=== PATIENT | male | born 1950 | race African-American/Black ===

== ENCOUNTER 2017-05-17 15:27 | Inpatient (IN) | payer MEDICARE ==
[2017-05-17 16:46] LABS: Basophils % (Auto) 0.9 % (0.0-1.8); Eosinophils % (Auto) 0.8 % (0.0-4.3); Lymphocytes # (Auto) 0.8 K/mm3 (1.2-5.4); Lymphocytes % (Auto) 17.7 % (13.4-35.0); Mean Corpuscular HGB Conc 31 % (32-34); Mean Corpuscular Hemoglobin 28 pg (28-32); Mean Corpuscular Volume 90 fl (84-94); Monocytes # (Auto) 0.7 K/mm3 (0.0-0.8); Monocytes % (Auto) 14.6 % (0.0-7.3); Platelet Count 112 K/mm3 (140-440); Red Blood Count 5.53 M/mm3 (3.65-5.03); Red Cell Distribution Width 18.6 % (13.2-15.2)
[2017-05-17 16:48] LABS: Calcium 9.6 mg/dL (8.4-10.2)
[2017-05-17 16:59] LABS: Hematocrit 49.7 % (35.5-45.6); Hemoglobin 15.5 gm/dl (11.8-15.2)
--- NOTE | 2017-05-17 18:27 | XRay Report ---
FINAL REPORT EXAM: XR CHEST ROUTINE 2V HISTORY: Shortness of breath TECHNIQUE: Chest single AP PRIORS: None. FINDINGS: There is a large right pleural effusion with opacification of approximately 50 percent of the right mina thorax. Nodular confluent opacity in the right lower lobe is indeterminate could reflect mass or infiltrate. Right heart border is obscured. Left lung is unremarkable no evidence for left effusion IMPRESSION: Large right pleural effusion
--- NOTE | 2017-05-18 02:15 | Emergency Department Report ---
ED General Adult HPI - General Chief complaint: Dyspnea/Respdistress Stated complaint: WATER IN LUGS Time Seen by Provider: 05/18/17 01:59 Source: patient, family, RN notes reviewed Mode of arrival: Ambulatory Limitations: No Limitations - History of Present Illness Initial comments: This is a 66-year-old male who was previously unknown to this provider. Patient visiting from [place] and has a past medical history of hypertension , end-stage renal disease on dialysis. Presents to the ER complaining of shortness of breath, indicating that he thinks he has water on his right lung. This is constant for the past few days to week. Symptoms worse with physical exertion. In a decrease with rest. Patient denies leg pain, leg swelling, hemoptysis. Patient also endorses resolved right-sided chest pain. The pain did not radiate to the back, arms or neck. There is no vomiting or diaphoresis. -: Gradual Location: chest Radiation: non-radiation Severity scale (0 -10): 0 Consistency: other (as per history of present illness) Improves with: other (chest pain does not have exacerbating or relieving factors. Shortness of breath worsens with physical exertion and decreases with rest.) Worsens with: other (as per history of present illness) Associated Symptoms: chest pain, shortness of breath, weakness - Related Data Allergies Allergy/AdvReac Type Severity Reaction Status Date / Time No Known Allergies Allergy Unverified 05/17/17 15:43 ED Review of Systems ROS: Stated complaint: WATER IN LUGS Other details as noted in HPI ED Past Medical Hx - Past Medical History Previous Medical History?: Yes Hx Hypertension: Yes Hx Renal Disease: Yes - Surgical History Past Surgical History?: Yes Additional Surgical History: Left arm dialysis graft - Social History Smoking Status: Former Smoker Substance Use Type: Prescribed ED Physical Exam - General Limitations: No Limitations General appearance: alert, in no apparent distress - Head Head exam: Present: atraumatic, normocephalic - Eye Eye exam: Present: normal appearance, EOMI. Absent: nystagmus - ENT ENT exam: Present: normal exam, normal orophraynx, mucous membranes moist, normal external ear exam - Neck Neck exam: Present: normal inspection - Respiratory Respiratory exam: Present: decreased breath sounds (decreased breath sounds in the right hemithorax). Absent: respiratory distress, rales, rhonchi, stridor - Cardiovascular Cardiovascular Exam: Present: regular rate, normal rhythm, normal heart sounds. Absent: systolic murmur, diastolic murmur, rubs, gallop - GI/Abdominal GI/Abdominal exam: Present: soft, normal bowel sounds. Absent: distended, tenderness, guarding, rebound, rigid, pulsatile mass - Rectal Rectal exam: Present: deferred - Extremities Exam Extremities exam: Present: normal inspection, full ROM, normal capillary refill , other (after extremity AV fistula, appropriate thrill, no redness, pus or streaking). Absent: pedal edema, joint swelling, calf tenderness - Back Exam Back exam: Present: normal inspection, full ROM. Absent: tenderness, CVA tenderness (R), paraspinal tenderness, vertebral tenderness - Neurological Exam Neurological exam: Present: alert, CN II-XII intact, other (Extraocular movements intact. Tongue midline. No facial droop. Facial sensation intact to light touch in the V1, V2, V3 distribution bilaterally. 5 and 5 strength in 4 extremities.. Sensation is intact to light touch in 4 extremities.). Absent : motor sensory deficit - Psychiatric Psychiatric exam: Present: normal affect, normal mood - Skin Skin exam: Present: warm, dry, intact, normal color. Absent: rash ED Course Vital Signs 05/17/17 05/18/17 05/18/17 15:43 01:07 02:00 Temperature 98.4 F 98.1 F 97.7 F Pulse Rate 89 89 104 H Respiratory 18 18 18 Rate Blood Pressure 94/64 106/67 Blood Pressure 108/64 [Left] O2 Sat by Pulse 94 96 Oximetry ED Medical Decision Making - Lab Data Result diagrams: 05/17/17 16:11 05/17/17 16:11 Vital Signs 05/17/17 05/18/17 05/18/17 15:43 01:07 02:00 Temperature 98.4 F 98.1 F 97.7 F Pulse Rate 89 89 104 H Respiratory 18 18 18 Rate Blood Pressure 94/64 106/67 Blood Pressure 108/64 [Left] O2 Sat by Pulse 94 96 Oximetry Lab Results 05/17/17 05/17/17 05/18/17 Range/Units 16:11 16:11 02:00 WBC 4.7 (4.5-11.0) K/mm3 RBC 5.53 H (3.65-5.03) M/mm3 Hgb 15.5 H (11.8-15.2) gm/dl Hct 49.7 H (35.5-45.6) % MCV 90 (84-94) fl MCH 28 (28-32) pg MCHC 31 L (32-34) % RDW 18.6 H (13.2-15.2) % Plt Count 112 L (140-440) K/mm3 Lymph % (Auto) 17.7 (13.4-35.0) % [place] % (Auto) 14.6 H (0.0-7.3) % Eos % (Auto) 0.8 (0.0-4.3) % Baso % (Auto) 0.9 (0.0-1.8) % Lymph # 0.8 L (1.2-5.4) K/mm3 [place] # 0.7 (0.0-0.8) K/mm3 Eos # 0.0 (0.0-0.4) K/mm3 Baso # 0.0 (0.0-0.1) K/mm3 Seg Neutrophils % 66.0 (40.0-70.0) % Seg Neutrophils # 3.1 (1.8-7.7) K/mm3 Sodium 144 (137-145) mmol/L Potassium 4.3 (3.6-5.0) mmol/L Chloride 93.2 L (98-107) mmol/L Carbon Dioxide 34 H (22-30) mmol/L Anion Gap 21 mmol/L BUN 29 H (9-20) mg/dL Creatinine 5.7 H (0.8-1.5) mg/dL Estimated GFR 10 ml/min BUN/Creatinine Ratio 5 % Glucose 71 L (75-100) mg/dL Calcium 9.6 (8.4-10.2) mg/dL Troponin T 0.182 H* (0.00-0.029) ng/mL NT-Pro-B Natriuret Pep 27734 H (0-900) pg/mL - EKG Data When compared to previous EKG there are: previous EKG unavailable 05/18/17 03:01 Sinus, 87 bpm, left axis deviation, left anterior fascicular block, QTC prolonged, high left ventricular voltage, abnormal EKG, poor R-wave progression , not morphologically consistent with ST elevation myocardial infarction - Radiology Data Radiology results: report reviewed, image reviewed X-ray of the chest demonstrates large right-sided pleural effusion, occupies 50 % the right hemithorax, may represent infiltrate as well, - Medical Decision Making Differential diagnosis, including but not limited to: Pneumonia, congestive heart failure, pleural effusion, pleuritis, pericarditis, myocarditis, acute coronary syndrome Assessment and plan: 66-year-old male, visiting from [place], with a complaint of chest pain which has resolved and shortness of breath. EKG abnormal, troponin elevated, this is most likely secondary to renal insufficiency, x-ray shows large right-sided pleural effusion, this is most likely the reason for the patient's chest pain or shortness of breath. Clinically doubt pneumonia given fever, case discussed with nephrology on-call, Dr. Tamara Solis, she agrees to follow in consultation, patient will be admitted for symptomatic pleural effusion, and further evaluation of chest pain. Critical care attestation.: If time is entered above; I have spent that time in minutes in the direct care of this critically ill patient, excluding procedure time. ED Disposition Clinical Impression: ESRD (end stage renal disease), Pleural effusion, Elevated troponin Disposition: 09 OP ADMIT IP TO THIS HOSP Is pt being admited?: Yes Does the pt Need Aspirin: Yes Condition: Good Referrals: JUMANA LUNA MD [Primary Care Provider] - 3-5 Days
[2017-05-18] MEDS ORDERED: BABY ASPIRIN PO ONE (03:03)
[2017-05-18 03:05] LABS: INR 1.18 (0.87-1.13)
[2017-05-18 03:27] LABS: Chol/HDL Ratio 3.1 %
--- NOTE | 2017-05-18 05:00 | History and Physical Report ---
History of Present Illness Date of examination: 05/18/17 Chief complaint: Shortness of breath, R side chest pain History of present illness: This is a 66-year-old male who was previously unknown to this provider. Patient visiting from [place] and has a past medical history of hypertension , end-stage renal disease on dialysis. Presents to the ER complaining of shortness of breath, indicating that he thinks he has water on his right lung. This is constant for the past few days to week. Symptoms worse with physical exertion. In a decrease with rest. Patient denies leg pain, leg swelling, hemoptysis. Patient also endorses resolved right-sided chest pain. The pain did not radiate to the back, arms or neck. There is no vomiting or diaphoresis. He has h/o pleural effusion and thoracentesis multiple times in the past , last one 2 yrs ago Past History Past Medical History: ESRD Medications and Allergies Allergies Allergy/AdvReac Type Severity Reaction Status Date / Time No Known Allergies Allergy Unverified 05/17/17 15:43 Review of Systems All systems: negative Exam - Physical Exam Narrative exam: General: the patient is awake alert oriented to time place and person. no evidence of acute distress HEENT: Head is atraumatic normocephalic,. Pupils equal round reactive to light and accommodation, extraocular movements intact. Oral mucosa moist. Oropharynx clear. No pharyngeal erythema or tonsillar exudate. Neck: Supple no JVD no thyromegaly or lymphadenopathy. Heart: Regular rate and rhythm no murmurs or gallops. S1 and S2 normal. PMI not displaced. Lungs: Clear to auscultation left side and diminished breath sounds right side . No rales rhonchi wheezing. Nonlabored breathing. Normal chest wall expansion. Abdomen: Soft, nondistended, and nontender. Normoactive bowel sounds. No hepatosplenomegaly. No abdominal masses or bruit appreciated. Extremities: No cyanosis/clubbing/ edema. Musculoskeletal: Normal range of movement all joints. No obvious deformity or tenderness to palpation. Normal muscle tone. Back: Normal alignment. No step-off. No midline or paraspinal tenderness. No CVA tenderness. Neurological: Grossly intact and nonfocal. No cerebellar signs. Cranial nerves II-12 grossly intact. Strength 5 out of 5 all 4 extremities. Sensations grossly intact. Skin: Warm and dry no rashes or bruises. Left forearm fistula. Good bruit and thrill Psychiatric: Normal mood. Appropriate affect and good insight and judgment. Vascular system: No lymphadenopathy. Distal pulses 2+ bilaterally. - Constitutional Vitals: Temp Pulse Resp BP Pulse Ox 97.7 F 100 H 18 95/70 95 05/18/17 02:00 05/18/17 03:19 05/18/17 03:19 05/18/17 03:19 05/18/17 03:19 Results - Labs CBC & Chem 7: 05/17/17 16:11 05/17/17 16:11 Labs: Laboratory Last Values WBC 4.7 K/mm3 (4.5-11.0) 05/17/17 16:11 RBC 5.53 M/mm3 (3.65-5.03) H 05/17/17 16:11 Hgb 15.5 gm/dl (11.8-15.2) H 05/17/17 16:11 Hct 49.7 % (35.5-45.6) H 05/17/17 16:11 MCV 90 fl (84-94) 05/17/17 16:11 MCH 28 pg (28-32) 05/17/17 16:11 MCHC 31 % (32-34) L 05/17/17 16:11 RDW 18.6 % (13.2-15.2) H 05/17/17 16:11 Plt Count 112 K/mm3 (140-440) L 05/17/17 16:11 Lymph % (Auto) 17.7 % (13.4-35.0) 05/17/17 16:11 [place] % (Auto) 14.6 % (0.0-7.3) H 05/17/17 16:11 Eos % (Auto) 0.8 % (0.0-4.3) 05/17/17 16:11 Baso % (Auto) 0.9 % (0.0-1.8) 05/17/17 16:11 Lymph # 0.8 K/mm3 (1.2-5.4) L 05/17/17 16:11 [place] # 0.7 K/mm3 (0.0-0.8) 05/17/17 16:11 Eos # 0.0 K/mm3 (0.0-0.4) 05/17/17 16:11 Baso # 0.0 K/mm3 (0.0-0.1) 05/17/17 16:11 Seg Neutrophils % 66.0 % (40.0-70.0) 05/17/17 16:11 Seg Neutrophils # 3.1 K/mm3 (1.8-7.7) 05/17/17 16:11 PT 15.6 Sec. (12.2-14.9) H 05/18/17 02:00 INR 1.18 (0.87-1.13) H 05/18/17 02:00 Sodium 144 mmol/L (137-145) 05/17/17 16:11 Potassium 4.3 mmol/L (3.6-5.0) 05/17/17 16:11 Chloride 93.2 mmol/L (98-107) L 05/17/17 16:11 Carbon Dioxide 34 mmol/L (22-30) H 05/17/17 16:11 Anion Gap 21 mmol/L 05/17/17 16:11 BUN 29 mg/dL (9-20) H 05/17/17 16:11 Creatinine 5.7 mg/dL (0.8-1.5) H 05/17/17 16:11 Estimated GFR 10 ml/min 05/17/17 16:11 BUN/Creatinine Ratio 5 % 05/17/17 16:11 Glucose 71 mg/dL (75-100) L 05/17/17 16:11 Calcium 9.6 mg/dL (8.4-10.2) 05/17/17 16:11 Troponin T 0.182 ng/mL (0.00-0.029) H* 05/18/17 02:00 NT-Pro-B Natriuret Pep 41835 pg/mL (0-900) H 05/18/17 02:00 Triglycerides 103 mg/dL (2-149) 05/18/17 02:00 Cholesterol 155 mg/dL (50-199) 05/18/17 02:00 LDL Cholesterol Direct 85 mg/dL (50-130) 05/18/17 02:00 HDL Cholesterol 50 mg/dL (40-59) 05/18/17 02:00 Cholesterol/HDL Ratio 3.10 % 05/18/17 02:00 - Imaging and Cardiology Imaging and Cardiology: EKG - Sinus rythm, 87 bpm, left axis deviation, left anterior fascicular block, QTC prolonged, high left ventricular voltage, abnormal EKG, poor R-wave progression, not morphologically consistent with ST elevation myocardial infarction X-ray of the chest demonstrates large right-sided pleural effusion, occupies 50 % the right hemithorax, may represent infiltrate as well, Assessment and Plan Assessment and plan: A&P - * Left pleural effusion * ESRD * Possible underlying LLL PNA * Chest pain - pleuritic * Hypotension Plan - Admit to medical floor with telemetry Nephrology consulted for dialysis, maintain patient's distal pulses scheduled Empiric antibiotics in the form of Levaquin Consult pulmonology in a.m. for possible thoracentesis Monitor CBC and electrolytes S when necessary as per protocol and degenerative prophylaxis as ordered monitor and follow the patient closely
[2017-05-18] MEDS ORDERED: AMBIEN PO PRN (05:06)
[2017-05-18] MEDS ORDERED: MILK OF MAGNESIA PO PRN (05:06)
[2017-05-18] MEDS ORDERED: PROVENTIL IH PRN (05:06)
[2017-05-18] MEDS ORDERED: ZOFRAN IV PRN (05:06)
[2017-05-18] MEDS ORDERED: PERCOCET 5/325 PO PRN (05:06)
[2017-05-18] MEDS ORDERED: TYLENOL PO PRN (05:06)
[2017-05-18] MEDS ORDERED: DULCOLAX PR PRN (05:06)
[2017-05-18] MEDS ORDERED: NACL 0.9% 1000 ML 1,000 ML IV SCH (06:00)
[2017-05-18] MEDS: DUONEB *Not for PRN Use IH SCH ×3 (07:22→20:41)
--- NOTE | 2017-05-18 09:20 | Consultation ---
History of Present Illness - Reason for Consult Consult date: 05/18/17 Past History Past Medical History: ESRD Medications and Allergies Allergies Allergy/AdvReac Type Severity Reaction Status Date / Time No Known Allergies Allergy Unverified 05/17/17 15:43 Active Meds: Active Medications Acetaminophen (Tylenol) 650 mg PO Q4H PRN PRN Reason: Pain MILD(1-3)/Fever >100.5/HUNTER Albuterol (Proventil) 2.5 mg IH Q3HRT PRN PRN Reason: Shortness Of Breath Albuterol/Ipratropium (Duoneb *Not For Prn Use*) 1 ampul IH Q6HRT [facility] Last Admin: 05/18/17 07:22 Dose: 1 ampul Bisacodyl (Dulcolax) 10 mg [place] QDAY PRN PRN Reason: Constipation unrelieved by MOM Docusate Sodium (Colace) 100 mg PO BID [facility] Enoxaparin Sodium (Lovenox) 30 mg SUB-Q QDAY [facility] Sodium Chloride (Nacl 0.9% 1000 Ml) 1,000 mls @ 75 mls/hr IV DIRECT [facility] Levofloxacin/Dextrose (Levaquin 500mg/100ml) 500 mg in 100 mls @ 100 mls/hr IV Q48HR [facility] Magnesium Hydroxide (Milk Of Magnesia) 30 ml PO Q4H PRN PRN Reason: Constipation Ondansetron HCl (Zofran) 4 mg IV Q8H PRN PRN Reason: N/V unrelieved by Reglan Oxycodone/Acetaminophen (Percocet 5/325) 1 tab PO Q6H PRN PRN Reason: Pain, Moderate (4-6) Pantoprazole Sodium (Protonix) 40 mg PO QDAY [facility] Senna (Senokot) 8.6 mg PO Q12HR [facility] Zolpidem Tartrate (Ambien) 5 mg PO QHS PRN PRN Reason: Insomnia Exam - Vital Signs Vital signs: Vital Signs Temp Pulse Resp BP Pulse Ox 98.4 F 89 18 94/64 94 05/17/17 15:43 05/17/17 15:43 05/17/17 15:43 05/17/17 15:43 05/17/17 15:43 Results - Lab Results 05/17/17 16:11 05/17/17 16:11 Most recent lab results Calcium 9.6 mg/dL (8.4-10.2) 05/17/17 16:11
[2017-05-18] MEDS: PROTONIX PO SCH (09:40)
[2017-05-18] MEDS: SENOKOT PO SCH ×2 (09:40→21:42)
[2017-05-18] MEDS: LOVENOX SUB-Q SCH (09:40)
[2017-05-18] MEDS: COLACE PO SCH ×2 (09:40→21:42)
[2017-05-18] MEDS ORDERED: LEVAQUIN 750MG/150ML 750 MG/150 ML BAG IV SCH (10:00)
[2017-05-18] MEDS: PHOSLO PO SCH ×2 (12:13→17:32)
--- NOTE | 2017-05-18 13:55 | Consultation ---
History of Present Illness Consult date: 05/18/17 Requesting physician: JACQUELYN BUTLER Reason for consult: pleural effusion History of present illness: 66 yo admitted with increased SOB, rylee. with exertion, some R sided CP, and large R effusion. States he has had fluid drained on R at least 3 times past 2 years, but cannot furnish any other details. Denies fevers, chills, cough, sputum, hemoptysis. States he is compliant with HD, does not leave early. Active Medications Acetaminophen (Tylenol) 650 mg PO Q4H PRN PRN Reason: Pain MILD(1-3)/Fever >100.5/HUNTER Albuterol (Proventil) 2.5 mg IH Q3HRT PRN PRN Reason: Shortness Of Breath Albuterol/Ipratropium (Duoneb *Not For Prn Use*) 1 ampul IH Q6HRT [facility] Last Admin: 05/18/17 07:22 Dose: 1 ampul Bisacodyl (Dulcolax) 10 mg [place] QDAY PRN PRN Reason: Constipation unrelieved by MOM Calcium Acetate (Phoslo) 1,334 mg PO AC [facility] Last Admin: 05/18/17 12:13 Dose: 1,334 mg Docusate Sodium (Colace) 100 mg PO BID [facility] Last Admin: 05/18/17 09:40 Dose: 100 mg Enoxaparin Sodium (Lovenox) 30 mg SUB-Q QDAY [facility] Last Admin: 05/18/17 09:40 Dose: 30 mg Sodium Chloride (Nacl 0.9% 1000 Ml) 1,000 mls @ 75 mls/hr IV DIRECT [facility] Levofloxacin/Dextrose (Levaquin 500mg/100ml) 500 mg in 100 mls @ 100 mls/hr IV Q48HR [facility] Magnesium Hydroxide (Milk Of Magnesia) 30 ml PO Q4H PRN PRN Reason: Constipation Ondansetron HCl (Zofran) 4 mg IV Q8H PRN PRN Reason: N/V unrelieved by Reglan Oxycodone/Acetaminophen (Percocet 5/325) 1 tab PO Q6H PRN PRN Reason: Pain, Moderate (4-6) Pantoprazole Sodium (Protonix) 40 mg PO QDAY [facility] Last Admin: 05/18/17 09:40 Dose: 40 mg Senna (Senokot) 8.6 mg PO Q12HR [facility] Last Admin: 05/18/17 09:40 Dose: 8.6 mg Zolpidem Tartrate (Ambien) 5 mg PO QHS PRN PRN Reason: Insomnia Past History Past Medical History: ESRD Past Surgical History: Other (None reported) Social history: full code. denies: smoking, alcohol abuse, prescription drug abuse, IV drug use Family history: other (No pulm issues reported) Medications and Allergies Allergies Allergy/AdvReac Type Severity Reaction Status Date / Time No Known Allergies Allergy Unverified 05/17/17 15:43 Home Medications Medication Instructions Recorded Confirmed Last Taken Type Calcium Acetate 1,334 mg PO AC 05/18/17 05/18/17 05/17/17 History Active Meds: Active Medications Acetaminophen (Tylenol) 650 mg PO Q4H PRN PRN Reason: Pain MILD(1-3)/Fever >100.5/HUNTER Albuterol (Proventil) 2.5 mg IH Q3HRT PRN PRN Reason: Shortness Of Breath Albuterol/Ipratropium (Duoneb *Not For Prn Use*) 1 ampul IH Q6HRT [facility] Last Admin: 05/18/17 07:22 Dose: 1 ampul Bisacodyl (Dulcolax) 10 mg [place] QDAY PRN PRN Reason: Constipation unrelieved by MOM Calcium Acetate (Phoslo) 1,334 mg PO AC [facility] Last Admin: 05/18/17 12:13 Dose: 1,334 mg Docusate Sodium (Colace) 100 mg PO BID [facility] Last Admin: 05/18/17 09:40 Dose: 100 mg Enoxaparin Sodium (Lovenox) 30 mg SUB-Q QDAY [facility] Last Admin: 05/18/17 09:40 Dose: 30 mg Sodium Chloride (Nacl 0.9% 1000 Ml) 1,000 mls @ 75 mls/hr IV DIRECT [facility] Levofloxacin/Dextrose (Levaquin 500mg/100ml) 500 mg in 100 mls @ 100 mls/hr IV Q48HR [facility] Magnesium Hydroxide (Milk Of Magnesia) 30 ml PO Q4H PRN PRN Reason: Constipation Ondansetron HCl (Zofran) 4 mg IV Q8H PRN PRN Reason: N/V unrelieved by Reglan Oxycodone/Acetaminophen (Percocet 5/325) 1 tab PO Q6H PRN PRN Reason: Pain, Moderate (4-6) Pantoprazole Sodium (Protonix) 40 mg PO QDAY [facility] Last Admin: 05/18/17 09:40 Dose: 40 mg Senna (Senokot) 8.6 mg PO Q12HR [facility] Last Admin: 05/18/17 09:40 Dose: 8.6 mg Zolpidem Tartrate (Ambien) 5 mg PO QHS PRN PRN Reason: Insomnia Review of Systems All systems: negative Physical Examination Vital signs: Vital Signs Temp Pulse Resp BP Pulse Ox 98.4 F 89 18 94/64 94 05/17/17 15:43 05/17/17 15:43 05/17/17 15:43 05/17/17 15:43 05/17/17 15:43 General appearance: no acute distress, alert Eyes: non-icteric ENT: oropharynx moist Neck: supple Effort: normal Ascultation: Right: diminished breath sounds (hemithorax) Cardiovascular: regular rate and rhythm (no r/g; loud III/ RAAD throughout) Gastrointestinal: normoactive bowel sounds, soft, non-tender, non-distended Integumentary: normal Extremities: no cyanosis, no edema, pink and warm Musculoskeletal: no deformities normal mental status, non-focal exam, pupils equal and round, CN II-XII normal mood appropriate, affect normal Results - Laboratory Findings CBC and BMP: 05/17/17 16:11 05/17/17 16:11 PT/INR, D-dimer PT 15.6 Sec. (12.2-14.9) H 05/18/17 02:00 INR 1.18 (0.87-1.13) H 05/18/17 02:00 Abnormal lab findings: Abnormal Labs 05/17/17 05/17/17 05/18/17 16:11 16:11 02:00 RBC 5.53 H Hgb 15.5 H Hct 49.7 H MCHC 31 L RDW 18.6 H Plt Count 112 L [place] % (Auto) 14.6 H Lymph # 0.8 L PT 15.6 H INR 1.18 H Chloride 93.2 L Carbon Dioxide 34 H BUN 29 H Creatinine 5.7 H Glucose 71 L Troponin T NT-Pro-B Natriuret Pep 05/18/17 02:00 RBC Hgb Hct MCHC RDW Plt Count [place] % (Auto) Lymph # PT INR Chloride Carbon Dioxide BUN Creatinine Glucose Troponin T 0.182 H* NT-Pro-B Natriuret Pep 99286 H - Diagnostic Findings Chest x-ray: report reviewed, image reviewed (large R effusion with severe CM) Assessment and Plan Imp: 1. R pleural effusion 2. Suspect A/C CHF 3. ESRD 4. Polycythemia of ? etiology Rec: 1. Echo 2. Diagnostic and therapeutic tap of R effusion 3. Further plans pending above Plan of care reviewed with patient, he understands/agrees Thanks kindly for the consult.
--- NOTE | 2017-05-18 14:35 | Event Note ---
Date: 05/18/17 66-year-old male admitted for Right pleural effusion. ESRD on HD. pulmonary and Nephrology consulted. Continue management per H/P.
[2017-05-18 15:59] LABS: Albumin 4.1 g/dL (3.9-5)
[2017-05-18] MEDS ORDERED: NACL 0.9% 100 ML IV PRN (17:23)
[2017-05-19] MEDS: DUONEB *Not for PRN Use IH SCH ×3 (02:03→14:33)
[2017-05-19 05:45] LABS: Basophils % (Auto) 0.9 % (0.0-1.8); Eosinophils # (Auto) 0.1 K/mm3 (0.0-0.4); Eosinophils % (Auto) 1.1 % (0.0-4.3); Hematocrit 45.5 % (35.5-45.6); Hemoglobin 14.3 gm/dl (11.8-15.2); Lymphocytes # (Auto) 0.9 K/mm3 (1.2-5.4); Lymphocytes % (Auto) 16.9 % (13.4-35.0); Mean Corpuscular HGB Conc 32 % (32-34); Mean Corpuscular Hemoglobin 29 pg (28-32); Mean Corpuscular Volume 91 fl (84-94); Monocytes # (Auto) 0.7 K/mm3 (0.0-0.8); Platelet Count 110 K/mm3 (140-440); Red Blood Count 5.03 M/mm3 (3.65-5.03); Red Cell Distribution Width 18.2 % (13.2-15.2)
[2017-05-19 06:19] LABS: Albumin 3.6 g/dL (3.9-5); BUN/Creatinine Ratio 7; Blood Urea Nitrogen 54 mg/dL (9-20); Hemolysis Index 12
[2017-05-19 06:23] LABS: Alanine Aminotransferase < 5 units/L (7-56)
[2017-05-19 07:13] VITALS: BP 99/73
[2017-05-19] MEDS: PHOSLO PO SCH ×2 (08:21→11:30)
--- NOTE | 2017-05-19 08:50 | Progress Note ---
Assessment and Plan Assessment and plan: Right sided pleural effusion Right sided pneumonia ESRD on HD History Interval history: patient was seen and evaluated this morning, no new complaints. Hospitalist Physical - Physical exam Narrative exam: Not in cardiopulmonary distress. The patient appeared well nourished and normally developed. Vital signs as documented. Head exam is unremarkable. No scleral icterus . Neck is without jugular venous distension, thyromegaly, or carotid bruits. Lungs decrease air entry and dullness on the right LL zone. Cardiac exam reveals regular rate and Rhythm. First and second heart sounds normal. No murmurs, rubs or gallops. Abdominal exam reveals normal bowel sounds, no masses, no organomegaly and no aortic enlargement. Extremities are nonedematous and both femoral and pedal pulses are normal. SAMPLE WASHER: Alert and oriented 3. No focal weakness. - Constitutional Vitals: Temp Pulse Resp BP Pulse Ox 98.0 F 91 H 22 99/73 97 05/19/17 07:09 05/19/17 08:00 05/19/17 08:24 05/19/17 07:09 05/19/17 08:04 Results - Labs CBC & Chem 7: 05/19/17 05:09 05/19/17 05:09 Labs: Laboratory Last Values WBC 5.3 K/mm3 (4.5-11.0) 05/19/17 05:09 RBC 5.03 M/mm3 (3.65-5.03) 05/19/17 05:09 Hgb 14.3 gm/dl (11.8-15.2) 05/19/17 05:09 Hct 45.5 % (35.5-45.6) 05/19/17 05:09 MCV 91 fl (84-94) 05/19/17 05:09 MCH 29 pg (28-32) 05/19/17 05:09 MCHC 32 % (32-34) 05/19/17 05:09 RDW 18.2 % (13.2-15.2) H 05/19/17 05:09 Plt Count 110 K/mm3 (140-440) L 05/19/17 05:09 Lymph % (Auto) 16.9 % (13.4-35.0) 05/19/17 05:09 [place] % (Auto) 13.0 % (0.0-7.3) H 05/19/17 05:09 Eos % (Auto) 1.1 % (0.0-4.3) 05/19/17 05:09 Baso % (Auto) 0.9 % (0.0-1.8) 05/19/17 05:09 Lymph # 0.9 K/mm3 (1.2-5.4) L 05/19/17 05:09 [place] # 0.7 K/mm3 (0.0-0.8) 05/19/17 05:09 Eos # 0.1 K/mm3 (0.0-0.4) 05/19/17 05:09 Baso # 0.0 K/mm3 (0.0-0.1) 05/19/17 05:09 Seg Neutrophils % 68.1 % (40.0-70.0) 05/19/17 05:09 Seg Neutrophils # 3.6 K/mm3 (1.8-7.7) 05/19/17 05:09 PT 15.6 Sec. (12.2-14.9) H 05/18/17 02:00 INR 1.18 (0.87-1.13) H 05/18/17 02:00 Sodium 139 mmol/L (137-145) 05/19/17 05:09 Potassium 4.5 mmol/L (3.6-5.0) 05/19/17 05:09 Chloride 91.2 mmol/L (98-107) L 05/19/17 05:09 Carbon Dioxide 24 mmol/L (22-30) D 05/19/17 05:09 Anion Gap 28 mmol/L 05/19/17 05:09 BUN 54 mg/dL (9-20) H 05/19/17 05:09 Creatinine 8.2 mg/dL (0.8-1.5) H 05/19/17 05:09 Estimated GFR 7 ml/min 05/19/17 05:09 BUN/Creatinine Ratio 7 % 05/19/17 05:09 Glucose 90 mg/dL (75-100) 05/19/17 05:09 Calcium 9.0 mg/dL (8.4-10.2) 05/19/17 05:09 Total Bilirubin 0.60 mg/dL (0.1-1.2) 05/19/17 05:09 AST 17 units/L (5-40) 05/19/17 05:09 ALT < 5 units/L (7-56) L 05/19/17 05:09 Alkaline Phosphatase 79 units/L (35-129) 05/19/17 05:09 Lactate Dehydrogenase 202 units/L (91-180) H 05/18/17 14:40 Troponin T 0.182 ng/mL (0.00-0.029) H* 05/18/17 02:00 NT-Pro-B Natriuret Pep 69911 pg/mL (0-900) H 05/18/17 02:00 Total Protein 7.7 g/dL (6.3-8.2) 05/19/17 05:09 Albumin 3.6 g/dL (3.9-5) L 05/19/17 05:09 Albumin/Globulin Ratio 0.9 % 05/19/17 05:09 Triglycerides 103 mg/dL (2-149) 05/18/17 02:00 Cholesterol 155 mg/dL (50-199) 05/18/17 02:00 LDL Cholesterol Direct 85 mg/dL (50-130) 05/18/17 02:00 HDL Cholesterol 50 mg/dL (40-59) 05/18/17 02:00 Cholesterol/HDL Ratio 3.10 % 05/18/17 02:00
[2017-05-19] MEDS: LOVENOX SUB-Q SCH (10:00)
[2017-05-19] MEDS: SENOKOT PO SCH (10:00)
[2017-05-19] MEDS: COLACE PO SCH (10:00)
[2017-05-19] MEDS: PROTONIX PO SCH (10:00)
--- NOTE | 2017-05-19 11:18 | Ultrasound Report ---
ULTRASOUND GUIDED RIGHT THORACENTESIS: 05/19/17 13:48:00 CLINICAL: Large right pleural effusion. FINDINGS: Ultrasound demonstrated a large right pleural effusion. The procedure was explained to the patient and all questions answered. Informed consent was obtained. Using sterile technique, ultrasound guidance, 1% lidocaine and a 5-[place] Y[place] catheter, right thoracentesis was performed with the patient sitting upright. 2.7 L of cloudy yellow fluid was removed. Specimens were sent to the lab. The patient tolerated the procedure well and there were no apparent complications. Post procedure chest x-ray showed no pneumothorax. IMPRESSION: Uncomplicated right thoracentesis.
--- NOTE | 2017-05-19 11:21 | XRay Report ---
AP CHEST :05/19/17 CLINICAL: Immediately status post right thoracentesis with removal of 2.7 L of fluid. COMPARISON:05/17/17 FINDINGS: Persistent widening of the right upper lobe pleural space but decreased widening compared to the prior exam. Opacification of the right middle lobe with streaky opacities and silhouetting of the right heart border. Blunted right costophrenic angle. No pneumothorax. The left lung is normally expanded and clear. The heart is large. Pulmonary vessels are normal. IMPRESSION: No pneumothorax status post right thoracentesis. Persistent loculated fluid versus scar of the right pleural space. Right middle lobe atelectasis versus pneumonia.
[2017-05-19 11:30] LABS: pH, Body Fluid 7.383
--- NOTE | 2017-05-19 11:33 | Ultrasound Report ---
RENAL ULTRASOUND: 05/19/17 CLINICAL: Erythrocytosis. FINDINGS: High resolution ultrasound demonstrated normal nondilated renal collecting systems and ureters. Marked increased echogenicity of the kidneys and marked bilateral renal parenchymal thinning. Right renal cysts measure 3.6 x 2.8 x 3.6 cm and 2.9 x 2.7 x 2.6 cm. A left renal cyst measures 0.9 x 0.8 x 0.8 cm. No renal mass or calculus. The right kidney measures 6.9 x 3.1 x 4.1-cm. The renal parenchyma measures 0.8-cm in thickness. The left kidney measures 8.1 x 3.5 x 3.5-cm. The renal parenchyma measures 0.9-cm in thickness. A thick walled collapsed urinary bladder. IMPRESSION: Severe bilateral medical renal disease with small kidneys and no hydronephrosis. Bilateral benign renal cysts. No mass identified.
--- NOTE | 2017-05-19 12:15 | Consultation ---
History of Present Illness - Reason for Consult Consult date: 05/19/17 end stage renal disease, hyperkalemia Requesting physician: JUMANA KYA - History of Present Illness 66-year-old male visiting from [place] and has a past medical history of hypertension, end-stage renal disease on dialysis. Presents to the ER complaining of shortness of breath, indicating that he thinks he has water on his right lung. This is constant for the past few days to week. Symptoms worse with physical exertion. In a decrease with rest. Patient denies leg pain , leg swelling, hemoptysis. Patient also endorses resolved right-sided chest pain. The pain did not radiate to the back, arms or neck. There is no vomiting or diaphoresis. ROS: Stated complaint: shortness of breath Other details as noted in HPI - Past Medical History Previous Medical History?: Yes Hx Hypertension: Yes Hx Renal Disease: Yes - Surgical History Past Surgical History?: Yes Additional Surgical History: Left arm dialysis graft - Social History Smoking Status: Former Smoker Substance Use Type: Prescribed Past History Past Medical History: ESRD Past Surgical History: Other (None reported) Social history: full code. denies: smoking, alcohol abuse, prescription drug abuse, IV drug use Family history: other (No pulm issues reported) Medications and Allergies Allergies Allergy/AdvReac Type Severity Reaction Status Date / Time No Known Allergies Allergy Unverified 05/17/17 15:43 Home Medications Medication Instructions Recorded Confirmed Last Taken Type Calcium Acetate 1,334 mg PO AC 05/18/17 05/18/17 05/17/17 History Active Meds: Active Medications Acetaminophen (Tylenol) 650 mg PO Q4H PRN PRN Reason: Pain MILD(1-3)/Fever >100.5/HUNTER Albuterol (Proventil) 2.5 mg IH Q3HRT PRN PRN Reason: Shortness Of Breath Albuterol/Ipratropium (Duoneb *Not For Prn Use*) 1 ampul IH Q6HRT [facility] Last Admin: 05/19/17 08:03 Dose: 1 ampul Bisacodyl (Dulcolax) 10 mg DE QDAY PRN PRN Reason: Constipation unrelieved by MOM Calcium Acetate (Phoslo) 1,334 mg PO AC [facility] Last Admin: 05/19/17 08:21 Dose: 1,334 mg Docusate Sodium (Colace) 100 mg PO BID [facility] Last Admin: 05/18/17 21:42 Dose: 100 mg Enoxaparin Sodium (Lovenox) 30 mg SUB-Q QDAY [facility] Last Admin: 05/18/17 09:40 Dose: 30 mg Levofloxacin/Dextrose (Levaquin 500mg/100ml) 500 mg in 100 mls @ 100 mls/hr IV Q48HR [facility] Ondansetron HCl (Zofran) 4 mg IV Q8H PRN PRN Reason: N/V unrelieved by Reglan Oxycodone/Acetaminophen (Percocet 5/325) 1 tab PO Q6H PRN PRN Reason: Pain, Moderate (4-6) Pantoprazole Sodium (Protonix) 40 mg PO QDAY [facility] Last Admin: 05/18/17 09:40 Dose: 40 mg Senna (Senokot) 8.6 mg PO Q12HR [facility] Last Admin: 05/18/17 21:42 Dose: 8.6 mg Zolpidem Tartrate (Ambien) 5 mg PO QHS PRN PRN Reason: Insomnia Exam - Vital Signs Vital signs: Vital Signs Temp Pulse Resp BP Pulse Ox 98.4 F 89 18 94/64 94 05/17/17 15:43 05/17/17 15:43 05/17/17 15:43 05/17/17 15:43 05/17/17 15:43 - Physical Exam Narrative exam: - General Limitations: No Limitations General appearance: alert, in no apparent distress - Head Head exam: Present: atraumatic, normocephalic - Eye Eye exam: Present: normal appearance, EOMI. Absent: nystagmus - ENT ENT exam: Present: normal exam, normal orophraynx, mucous membranes moist, normal external ear exam - Neck Neck exam: Present: normal inspection - Respiratory Respiratory exam: Present: decreased breath sounds (decreased breath sounds in the right hemithorax). Absent: respiratory distress, rales, rhonchi, stridor - Cardiovascular Cardiovascular Exam: Present: regular rate, normal rhythm, normal heart sounds. Absent: systolic murmur, diastolic murmur, rubs, gallop - GI/Abdominal GI/Abdominal exam: Present: soft, normal bowel sounds. Absent: distended, tenderness, guarding, rebound, rigid, pulsatile mass - Rectal Rectal exam: Present: deferred - Extremities Exam Extremities exam: Present: normal inspection, full ROM, normal capillary refill , other (after extremity AV fistula, appropriate thrill, no redness, pus or streaking). Absent: pedal edema, joint swelling, calf tenderness - Back Exam Back exam: Present: normal inspection, full ROM. Absent: tenderness, CVA tenderness (R), paraspinal tenderness, vertebral tenderness - Neurological Exam Neurological exam: Present: alert, CN II-XII intact, other (Extraocular movements intact. Tongue midline. No facial droop. Facial sensation intact to light touch in the V1, V2, V3 distribution bilaterally. 5 and 5 strength in 4 extremities.. Sensation is intact to light touch in 4 extremities.). Absent : motor sensory deficit - Psychiatric Psychiatric exam: Present: normal affect, normal mood - Skin Skin exam: Present: warm, dry, intact, normal color. Absent: rash Results - Lab Results 05/19/17 05:09 05/19/17 05:09 Most recent lab results Calcium 9.0 mg/dL (8.4-10.2) 05/19/17 05:09 Assessment and Plan Impression: * ESRD * HTN * SHortness of breath * Anemia in ESRD * Low bp Plan: * HD today and q MWF * strict i/os * uf as tolerated with HD * daily lytes * epogen with HD
[2017-05-19 12:50] LABS: Total Cells Counted 100 /mm3
--- NOTE | 2017-05-19 17:14 | Progress Note ---
Assessment and Plan Assessment and plan: Right sided pleural effusion Right sided pneumonia ESRD on HD - Patient is on IV antibiotics - Nephrology consulted for hemodialysis - Pulmonary consulted interest and this was done this morning DVT prophylaxis Disposition - Continue inpatient care History Interval history: patient was seen and evaluated this morning, no new complaints. Hospitalist Physical - Physical exam Narrative exam: Not in cardiopulmonary distress. The patient appeared well nourished and normally developed. Vital signs as documented. Head exam is unremarkable. No scleral icterus . Neck is without jugular venous distension, thyromegaly, or carotid bruits. Lungs decrease air entry and dullness on the right LL zone. Cardiac exam reveals regular rate and Rhythm. First and second heart sounds normal. No murmurs, rubs or gallops. Abdominal exam reveals normal bowel sounds, no masses, no organomegaly and no aortic enlargement. Extremities are nonedematous and both femoral and pedal pulses are normal. GREENHOUSE WORKER: Alert and oriented 3. No focal weakness. - Constitutional Vitals: Temp Pulse Resp BP Pulse Ox 98.0 F 91 H 22 99/73 97 05/19/17 07:09 05/19/17 08:00 05/19/17 08:24 05/19/17 07:09 05/19/17 08:04 Results - Labs CBC & Chem 7: 05/19/17 05:09 05/19/17 05:09 Labs: Laboratory Last Values WBC 5.3 K/mm3 (4.5-11.0) 05/19/17 05:09 RBC 5.03 M/mm3 (3.65-5.03) 05/19/17 05:09 Hgb 14.3 gm/dl (11.8-15.2) 05/19/17 05:09 Hct 45.5 % (35.5-45.6) 05/19/17 05:09 MCV 91 fl (84-94) 05/19/17 05:09 MCH 29 pg (28-32) 05/19/17 05:09 MCHC 32 % (32-34) 05/19/17 05:09 RDW 18.2 % (13.2-15.2) H 05/19/17 05:09 Plt Count 110 K/mm3 (140-440) L 05/19/17 05:09 Lymph % (Auto) 16.9 % (13.4-35.0) 05/19/17 05:09 [place] % (Auto) 13.0 % (0.0-7.3) H 05/19/17 05:09 Eos % (Auto) 1.1 % (0.0-4.3) 05/19/17 05:09 Baso % (Auto) 0.9 % (0.0-1.8) 05/19/17 05:09 Lymph # 0.9 K/mm3 (1.2-5.4) L 05/19/17 05:09 [place] # 0.7 K/mm3 (0.0-0.8) 05/19/17 05:09 Eos # 0.1 K/mm3 (0.0-0.4) 05/19/17 05:09 Baso # 0.0 K/mm3 (0.0-0.1) 05/19/17 05:09 Seg Neutrophils % 68.1 % (40.0-70.0) 05/19/17 05:09 Seg Neutrophils # 3.6 K/mm3 (1.8-7.7) 05/19/17 05:09 PT 15.6 Sec. (12.2-14.9) H 05/18/17 02:00 INR 1.18 (0.87-1.13) H 05/18/17 02:00 Sodium 139 mmol/L (137-145) 05/19/17 05:09 Potassium 4.5 mmol/L (3.6-5.0) 05/19/17 05:09 Chloride 91.2 mmol/L (98-107) L 05/19/17 05:09 Carbon Dioxide 24 mmol/L (22-30) D 05/19/17 05:09 Anion Gap 28 mmol/L 05/19/17 05:09 BUN 54 mg/dL (9-20) H 05/19/17 05:09 Creatinine 8.2 mg/dL (0.8-1.5) H 05/19/17 05:09 Estimated GFR 7 ml/min 05/19/17 05:09 BUN/Creatinine Ratio 7 % 05/19/17 05:09 Glucose 90 mg/dL (75-100) 05/19/17 05:09 Calcium 9.0 mg/dL (8.4-10.2) 05/19/17 05:09 Total Bilirubin 0.60 mg/dL (0.1-1.2) 05/19/17 05:09 AST 17 units/L (5-40) 05/19/17 05:09 ALT < 5 units/L (7-56) L 05/19/17 05:09 Alkaline Phosphatase 79 units/L (35-129) 05/19/17 05:09 Lactate Dehydrogenase 202 units/L (91-180) H 05/18/17 14:40 Troponin T 0.182 ng/mL (0.00-0.029) H* 05/18/17 02:00 NT-Pro-B Natriuret Pep 08703 pg/mL (0-900) H 05/18/17 02:00 Total Protein 7.7 g/dL (6.3-8.2) 05/19/17 05:09 Albumin 3.6 g/dL (3.9-5) L 05/19/17 05:09 Albumin/Globulin Ratio 0.9 % 05/19/17 05:09 Triglycerides 103 mg/dL (2-149) 05/18/17 02:00 Cholesterol 155 mg/dL (50-199) 05/18/17 02:00 LDL Cholesterol Direct 85 mg/dL (50-130) 05/18/17 02:00 HDL Cholesterol 50 mg/dL (40-59) 05/18/17 02:00 Cholesterol/HDL Ratio 3.10 % 05/18/17 02:00 Fluid Type Pleural 05/19/17 10:40 Fluid Color Yellow 05/19/17 10:40 Fluid Appearance Cloudy 05/19/17 10:40 Fluid pH 7.383 05/19/17 10:40 Fluid WBC 53 /mm3 05/19/17 10:40 Fluid RBC 495 /mm3 05/19/17 10:40 Fluid Seg Neutrophils Not Reportable 05/19/17 10:40 Fluid Lymphocytes 77.0 % 05/19/17 10:40 Fluid Reactive Lymphs Not Reportable 05/19/17 10:40 Fluid Monocytes 23.0 % 05/19/17 10:40 Fluid Eosinophils Not Reportable 05/19/17 10:40 Fluid Basophils Not Reportable 05/19/17 10:40
[2017-05-20] MEDS ORDERED: LEVAQUIN 500MG/100ML 500 MG/100 ML BAG IV SCH (10:00)
--- NOTE | 2017-05-20 20:56 | Event Note ---
Date: 05/20/17 There was a note written by a nurse which, stated Dr Dietz was notified which was a wrong information, I was not notified about the patient's refusal of treatment or sign AMA. The nurses's note is pasted here. " MARY BARKER Male : 1950 [facility]# [id number] 05/19/17 13:52 - Nurse Note by CANDI OCHOA Acct Num: [id number] : 1950 Patient Age: 66 Patient refusing Hemodialysis Nurse notified MD Dietz via beeper, awaiting return call. Initialized on 05/19/17 13:52 - END OF NOTE"
--- NOTE | 2017-05-20 20:58 | Discharge Summary ---
Providers - Providers Date of Admission: 05/18/17 05:06 Date of discharge: 05/19/17 Attending physician: JACQUELYN BUTLER MD 05/18/17 02:14 Consult to Physician [CONS] Urgent Consulting Provider: RIHCARDSON BLOCK Reason For Exam: esrd Notified:: yes 05/18/17 08:59 Consult to Physician [CONS] Routine Consulting Provider: MARY JAMES Reason For Exam: right pleural effusion Place consult to:: pulmonary/ [place] Notified:: office Phone number called:: Was contact made?: Yes If yes, spoke with:: asha Time called:: 10:08 Primary care physician: JUMANA LUNA Hospitalization Reason for admission: Right sided pleural effusion, ESRD on HD Condition: Good Pertinent studies: CXR massive right pleural effusion Echocardiogram Procedures: Thoracentessis 2.7 cloudy yellow fluid was drained Hospital course: This is a 66-year-old male Patient visiting from [place] and has a past medical history of hypertension, end-stage renal disease on dialysis. Presents to the ER complaining of shortness of breath, indicating that he thinks he has water on his right lung. This is constant for the past few days to week. Symptoms worse with physical exertion better with rest. Patient denies leg pain , leg swelling, hemoptysis. Patient also endorses resolved right-sided chest pain. The pain did not radiate to the back, arms or neck. There is no vomiting or diaphoresis. He has h/o pleural effusion and thoracentesis multiple times in the past , last one 2 yrs ago. Patient was admitted to the floor and was started with IV antibiotics and pulmonary was consulted and thoracentesis was done and 2.7 L of yellow, cloudy fluid was taken out and samples were sent for lab analyisis. Nephrology was consulted and patient had dialysis. Echo was done and showed EF of 10-15%, I am not sure whether this new or old. patient showed improvement and when I evaluated him he didn't mention of leaving AMA. patient was appreciative about the service. Echo was done but result was dictated after the patient left AMA so I couldn't get a chance to explain about his ECHO result. I was not notified by medical staff the patient refused treatment pr leaving AMA. I just read the nurses note. Per the nurses note they tried to explain that the resk benefits of treatment, patient understood and sign AMA. Disposition: DC-07 LEFT AGAINST MED ADVICE Time spent for discharge: 31 minutes - Discharge Diagnoses (1) Right lower lobe pneumonia Status: Acute (2) ESRD (end stage renal disease) Status: Acute (3) Elevated troponin Status: Acute (4) Pleural effusion Status: Acute (5) CHF (congestive heart failure) Status: Acute Qualifiers: Congestive heart failure type: systolic Congestive heart failure chronicity : unspecified congestive heart failure chronicity Qualified Code(s): I50.20 - Unspecified systolic (congestive) heart failure Core Measure Documentation - Palliative Care Palliative Care/ Comfort Measures: Not Applicable - Core Measures Any of the following diagnoses?: none (Patient has CHF but left AMA ) Exam - Physical Exam Narrative exam: Didn't examine while he left AMA. Was not notified. - Constitutional Vitals: Temp Pulse Resp BP Pulse Ox 98.0 F 91 H 22 99/73 97 05/19/17 07:09 05/19/17 08:00 05/19/17 08:24 05/19/17 07:09 05/19/17 08:04 Plan Activity: other (Left AMA) Weight Bearing Status: Full Weight Bearing (Left AMA) Diet: other (Left AMA) Special Instructions: other (Left AMA) Durable Medical Equipment Needed Upon Discharge: other (Left AMA) Additional Instructions: Left AMA Follow up with: JUMANA LUNA MD [Primary Care Provider] - 7 Days
[2017-05-24 15:15] LABS: LDH,Body Fluid 164; Total Protein,Body Fluid 5.7 (15.0-45.0); Triglycerides,Body Fluid 46
== END 2017-05-19 15:00 | disposition left against medical advice (07) | DRG 291 ==
LOC: ED 15:27 → 3A 05-18 05:06
PROVIDERS: ADMIT Internal Medicine Geriatric Medicine; ATTEND Internal Medicine
PROC: 0W993ZZ Drainage of Right Pleural Cavity, Percutaneous Approach (ICD-10-PCS; principal; 2017-05-19)
DX: I13.2 Hypertensive heart and chronic kidney disease with heart failure and with stage 5 chronic kidney disease, or end stage renal disease (principal); J18.1 Lobar pneumonia, unspecified organism; N18.6 End stage renal disease; I50.21 Acute systolic (congestive) heart failure; J90 Pleural effusion, not elsewhere classified; I95.9 Hypotension, unspecified; Z53.21 Procedure and treatment not carried out due to patient leaving prior to being seen by health care provider; I50.9 Heart failure, unspecified; E87.5 Hyperkalemia; D63.1 Anemia in chronic kidney disease; Z87.891 Personal history of nicotine dependence
CPT/HCPCS: 32555; 36415; 71010; 71020; 76770; 80048; 80053; 80061; 82040; 82947; 83605; 83615; 83880; 84160; 84478; 84484; 85025; 85610; 87116; 88112; 88305; 89051; 93005; 93010; 93306; 94640; 94760; J1650